=== PATIENT | male | born 1970 | race Caucasian/White ===

== ENCOUNTER 2024-06-21 14:18 | Outpatient (CLI) | payer BC, SELFPAY | END 2024-06-21 14:19 | disposition home or self-care (01) | PROVIDERS: Visit Provider Nurse Practitioner Family | DX: I10 Essential (primary) hypertension (principal); R73.9 Hyperglycemia, unspecified; F10.10 Alcohol abuse, uncomplicated; Z12.5 Encounter for screening for malignant neoplasm of prostate; Z13.6 Encounter for screening for cardiovascular disorders | CPT/HCPCS: 80053; 80061; G0103 ==

== ENCOUNTER 2024-07-13 12:08 | Outpatient (CLI) | payer BC, SELFPAY ==
--- NOTE | 2024-07-13 14:00 | P.ANES_ITS ---
Anesthesia Charges Start Date/Time Anesthesia Start Date: 07/13/24 Anesthesia Start Time: 13:12 Stop Date/Time Anesthesia Stop Date: 07/13/24 Anesthesia Stop Time: 13:55 Coding CPT Codes CPT Codes: ANES LWR INTST NDSC NOS - [id number] ([id number]) P3 - PATIENT W/SEVERE SYS DISEASE, QX - FAT PURIFICATION WORKER SVC W/ MD MED DIRECTION, QK - SOCCER PLAYER 2-4 CNCRNT ANES PROC
--- NOTE | 2024-07-13 14:00 | W.ANESCHARGE ---
Anesthesia Charges Start Date/Time Anesthesia Start Date: 07/13/24 Anesthesia Start Time: 13:12 Stop Date/Time Anesthesia Stop Date: 07/13/24 Anesthesia Stop Time: 13:55 Coding CPT Codes CPT Codes: ANES LWR INTST NDSC NOS - [id number] ([id number]) P3 - PATIENT W/SEVERE SYS DISEASE, QX - WATERPROOFING SUPERVISOR SVC W/ MD MED DIRECTION, QK - CREDIT REPORT CHECKER 2-4 CNCRNT ANES PROC
--- NOTE | 2024-07-13 14:06 | P.ANES_ITS ---
Anesthesia Charges Start Date/Time Anesthesia Start Date: 07/13/24 Anesthesia Start Time: 13:12 Stop Date/Time Anesthesia Stop Date: 07/13/24 Anesthesia Stop Time: 13:55 Coding CPT Codes CPT Codes: ANES LWR INTST NDSC NOS - [id number] ([id number]) QK - REGULATORY SUBMISSIONS SPECIALIST 2-4 CNCRNT ANES PROC, QX - TUFTING MACHINE OPERATOR SVC W/ MED DIRECTION, P3 - PATIENT W/SEVERE SYS DISEASE
--- NOTE | 2024-07-13 14:06 | W.ANESCHARGE ---
Anesthesia Charges Start Date/Time Anesthesia Start Date: 07/13/24 Anesthesia Start Time: 13:12 Stop Date/Time Anesthesia Stop Date: 07/13/24 Anesthesia Stop Time: 13:55 Coding CPT Codes CPT Codes: ANES LWR INTST NDSC NOS - [id number] ([id number]) QK - TRANSFER TABLE OPERATOR 2-4 CNCRNT ANES PROC, QX - RAILROAD TRACK MECHANIC SVC W/ MED DIRECTION, P3 - PATIENT W/SEVERE SYS DISEASE
== END 2024-07-13 12:09 | disposition home or self-care (01) ==
LOC: OP CLINIC 12:09
PROVIDERS: PCP Nurse Practitioner Family; Visit Provider Surgery
DX: Z12.11 Encounter for screening for malignant neoplasm of colon (principal); K63.89 Other specified diseases of intestine; D12.4 Benign neoplasm of descending colon; D12.7 Benign neoplasm of rectosigmoid junction; K64.9 Unspecified hemorrhoids
CPT/HCPCS: 00811; 45380; 45385; 88305; J2704